=== PATIENT | male | born 1975 | race Hispanic/Latino ===

== ENCOUNTER 2021-09-20 08:22 | Outpatient (CLI) | payer OTHER ==
[2021-09-20 10:36] LABS: #Basophils 0.1 thou/uL (0.0-0.2); #Eosinphils 0.2 thou/uL (0.0-0.7); #Lymphocytes 2.4 thou/uL (1.20-3.40); #Monocytes 0.6 thou/uL (0.11-0.59); #Neutrophils 3.9 thou/uL (1.40-6.50); %Basophils 1.2 % (0.0-1.0); %Eosinophils 2.7 % (0.0-10.0); %Lymphocytes 33.6 % (21.0-51.0); %Monocytes 8.2 % (0.0-10.0); %Neutrophils 54.3 % (42.0-75.0); Hemoglobin 13.7 g/dL (14.0-18.0); Mean Corpuscular HGB CONC 32.6 g/dL (32.0-36.0); Mean Corpuscular Hemoglobin 29.6 pg (27.0-31.0); Mean Corpuscular Volume 90.6 fL (78.0-98.0); Mean Platelet Volume 8.3 fL (7.4-10.4); Platelet Count 201 thou/uL (130-400); RBC Distribution Width 13.1 % (11.5-14.5); Red Blood Cell (RBC) Count 4.63 mill/uL (4.70-6.10); White Blood Cell (WBC) Count 7.2 thou/uL (4.8-10.8)
[2021-09-20 10:49] LABS: ALT (SGPT) 51 U/L (8-55); AST (SGOT) 34 U/L (5-34); Albumin 4.1 g/dL (3.5-5.0); Alkaline Phosphatase 57 U/L (40-110); Anion Gap 12 mmol/L (10-20); BUN (Urea Nitrogen) 10 mg/dL (8.9-20.6); Bilirubin, Total 0.7 mg/dL (0.2-1.2); Calc. Creatinine Clearance 0 mL/min (70-130); Calcium 8.7 mg/dL (7.8-10.44); Carbon Dioxide 25 mmol/L (22-29); Chloride 107 mmol/L (98-107); Globulin 2.8 g/dL (2.4-3.5); Glucose 110 mg/dL (70-105); Protein, Total 6.9 g/dL (6.0-8.3); Sodium 140 mmol/L (136-145)
[2021-09-20 16:02] LABS: Cardiac Risk 4.7 (Less than 4.5); Cholesterol 170 mg/dl (< 200 Desired); HDL Cholesterol 36 mg/dL (>60 Neg Risk); LDL Cholesterol, Calculated 116 mg/dL; Triglycerides 90 mg/dL (Less than 150)
== END 2021-09-20 08:23 | disposition home or self-care (01) ==
LOC: NAV LAB 08:22
PROVIDERS: ATTEND Nurse Practitioner Family
DX: Z68.41 Body mass index [BMI] 40.0-44.9, adult (principal)
CPT/HCPCS: 80053; 80061; 85025

== ENCOUNTER 2022-10-26 20:50 | Emergency (ER) | payer OTHER ==
[2022-10-26] MEDS ORDERED: methylPREDNISolone Acetate 40 mg/ml Vial ONE (21:54)
== END 2022-10-26 22:15 | disposition home or self-care (01) ==
LOC: NAV ERS 20:50
DX: R07.89 Other chest pain (principal); I10 Essential (primary) hypertension; F17.210 Nicotine dependence, cigarettes, uncomplicated
CPT/HCPCS: 93005; 96372; J1030